=== PATIENT | female | born 1940 | race Caucasian/White ===

== ENCOUNTER → 2016-04-28 | Outpatient (CLI) | payer OTHER ==
[~2016-04-28] MED LIST: ACETAMINOPHEN PO; AMITRIPTYLINE H25 MG PO; AMITRYPTYLINE PO; ASPIRIN PO; ASPIRIN81 M1 PO; ATENOLOL PO; AUGMENTIN PO; BENICAR PO; BENICAR20 MG PO; CALCIUM + D PO; CENTRUM SILVER PO; CERTAGEN PO; CHONDROITIN; CHONDROITIN PO; CIPRO PO; ELMIRON100 MG PO; ENABLEX15 MG PO; FISH OIL; FISH OIL 1,0001 CAP PO; FLAGYL PO; FLAX SEED OIL1000 MG PO; FLUOXETINE HCL10 MG PO; GLUCOSAMINE; GLUCOSAMINE CHONDROI PO; GLUCOSAMINE PO; HYDROXYZINE HCL10 MG PO; MELATONIN3 MG PO; OMEPRAZOLE40 MG PO; OYSTER CALCIUM500 MG PO; PHENERGAN25 M1 PO; PROTONIX PO; PROZAC PO; SINGULAIR PO; VITAMIN C PO; WELCHOL625 MG PO; ZETIA PO; [UNRECOGNIZED DRUG - OTHER]
--- NOTE | ~2016-04-28 | MY11 ---
[facility] A Service of [facility] RADIOLOGY TEXT RESULTS PATIENT: VENANCIO JUARES LOCATION: [facility] : 38 UNIT #: [id number] AGE: [address]: Sebastian Lauren MD SEX: F ORDER DR: [id number] [address] [address] [id number] MR#: [id number] Acc #: [id number] NAME: VENANCIO JUARES : 1940 SEX: F STUDY DATE/TIME: 04/28/2016 10:43 UNIT: [facility] ROOM: STUDY DESCRIPTION: MY Mammogram Screening Dig Yehuda Attending Physician: Sebastian Lauren M.D. Referring Physician: Sebastian Lauren M.D. Ordering Physician: Sebastian Lauren M.D. Primary Care Physician: Sebastian Lauren M.D. MEDICAL IMAGING REPORT This report is preliminary unless electronic signature is present. EXAM Digital screening mammogram, 04/28/2016, [facility]. HISTORY 75-year-old woman no risk elevation. Two prior breast biopsies. Annual screen. COMPARISON Mammograms date to 02/25/2008 with most recent screening comparison 02/08/2015. FINDINGS Digital imaging of each breast was completed utilizing a two-view examination of each breast in craniocaudal and mediolateral-oblique projections. Review and interpretation of digital mammograms include a second review in conjunction with FDA-approved CAD device. There is a normal parenchymal presentation bilaterally consistent with the patient's age. There are no breast masses imaged and no parenchymal asymmetry is visualized. There are no suspicious microcalcifications and I see no focal architectural disturbance. IMPRESSION Negative screening digital mammogram. One-year followup recommended. Patients over the age of 40 are entered into a reminder system with target due date for the next mammogram. A result letter will also be sent to the patient. BIRADS: 1 Negative ADDENDUM Mild parenchymal dominance left breast is stable. [facility] A Service of [facility] RADIOLOGY TEXT RESULTS PATIENT: VENANCIO JUARES LOCATION: [facility] : 38 UNIT #: [id number] AGE: [address]: Sebastian Lauren MD SEX: F ORDER DR: Dictated by... Fernando Davila M.D. THIS IS AN ELECTRONICALLY VERIFIED REPORT Fernando Davila M.D. at 04/28/2016 3:19 PM PRESLEY/lorraine TD: 04/28/2016 14:18 JOB #: [id number] MEDICAL IMAGING REPORT
== END | disposition home or self-care (01) ==
LOC: SMAM 09:32
DX: Z12.31 Encounter for screening mammogram for malignant neoplasm of breast (principal); Z98.890 Other specified postprocedural states
CPT/HCPCS: G0202